=== PATIENT | male | born 1980 | race Caucasian/White ===

== ENCOUNTER → 2018-06-03 | Outpatient (CLI) | payer OTHER | END | disposition home or self-care (01) | LOC: LAB 19:21 | PROVIDERS: ATTEND Nurse Practitioner Family | DX: L03.311 Cellulitis of abdominal wall (principal) | CPT/HCPCS: 87070; 87077; 87186 ==

== ENCOUNTER → 2018-06-03 | Outpatient (CLI) | payer OTHER ==
--- NOTE | 2018-06-03 19:23 | DIREP ---
PROCEDURE:XRAY SHOULDER MIN 2 VWS-RT COMPARISON:None. INDICATIONS:PAIN IN SHOULDER FINDINGS: BONES:Normal. JOINTS:Normal glenohumeral and acromioclavicular joints. No evidence for dislocation. SOFT TISSUES:Normal. OTHER:Normal. CONCLUSION:Normal examination. Dictated by: Areli Mcfarland M.D. on 06/03/2018 at 07:19 PM
== END | disposition home or self-care (01) ==
LOC: RAD 18:33
PROVIDERS: ATTEND Nurse Practitioner Family
DX: M25.511 Pain in right shoulder (principal)
CPT/HCPCS: 73030-RT